=== PATIENT | male | born 1955 | race Caucasian/White ===

== ENCOUNTER 2016-03-14 11:15 | Observation (INO) | payer OTHER ==
[~2016-03-14 11:15] MED LIST: ceFAZolin 2 GM/DEXTROSE 100 ML IV ONE
[2016-03-14] MEDS ORDERED: CEFAZOLIN 2 GM/DEXTROSE/100 ML BAG IV ONE (11:54)
[2016-03-14] MEDS ORDERED: LR 1,000 ML IV ONE (12:26)
[2016-03-14] MEDS ORDERED: LIDOCAINE 1% 5 ML SDV ID PRN (12:26)
[2016-03-14] MEDS ORDERED: LABETALOL HCL 5 MG/ML 20 ML MDV IVP PRN (14:28)
[2016-03-14] MEDS ORDERED: oxyCODONE IR 5 MG TAB PO PRN (14:29)
[2016-03-14] MEDS ORDERED: ACETAMINOPHEN 500 MG TAB PO PRN (14:29)
[2016-03-14] MEDS ORDERED: ONDANSETRON 4 MG/2 ML VIAL IVP PRN (14:29)
[2016-03-14] MEDS ORDERED: LABETALOL HCL 5 MG/ML 20 ML MDV ONE (15:15)
[2016-03-14 17:29] LABS: ANION GAP 12 mEq/L (8-16); CARBON DIOXIDE 27 mEq/l (22-31); CHLORIDE 102 mEq/L (97-110); CREATININE 1.1 mg/dL (0.7-1.3); GLOMERULAR FILTRATION RATE > 60; GLUCOSE 124 mg/dL (70-100); SODIUM 141 mEq/L (134-144)
--- NOTE | 2016-03-14 18:33 | PDGENHP ---
History and Physical History and Physical: CONSULT AND HISTORY AND PHYSICAL ADMISSION NOTE CC: I am asked by Dr. Castro and Sp to see this patient because of severe hypertension in the preop area HISTORY: Mr. Michel comes in today for elective lumbar spine surgery with known lumbar disc disease with nerve impingement and significant refractory symptoms. In the preop area the patient has had blood pressures in the 180 systolic and mid 120s diastolic. I am asked to evaluate him for diagnosis and management of his blood pressure issues. Because of the projected prone positioning of the patient and concerned about altered auto regulation factors leading to high risk of complications, his surgery case has been canceled at this time and will be rescheduled. At this time the patient feels well other than his spine related symptoms. He has some sinus congestion which gives him a little bit of discomfort but this is a chronic symptom that he treats at home on a regular basis. He has no new headache type syndrome, no vision or neurologic symptoms, no chest pain, shortness of breath, palpitations, leg pain or swelling, abdominal pain or nausea. He has had none of these symptoms at home recently. He has no history of heart disease, and is not treated for hypertension. He says that 1 point he had some mildly elevated blood pressures on being evaluated his primary care doctor's office, however when he was given home blood pressure monitor for 24 hours as well as intermittent monitoring at home his blood pressures have always been good. His last blood pressure check was a week ago at Dr. Castro office and was normal. He does not use illicit street drugs and does not drink significant alcohol and does not smoke. There is not a significant family history of high blood pressure. As mentioned above the patient does have chronic sinus congestion. He has been treating this with decongestants. Last night around 10 o'clock at night he took 1-1/2 240 mg Sudafed tablets and use some Oxy metolazone spray as well. He says he does not use these medicines every day but uses them quite frequently to treat his sinus symptoms, particularly at night. He had his medicines with him and I looked at the packaging for the tablets which are 24 hour cold remedy with multiple medicines but indeed they do have 240 mg of pseudoephedrine. ROS: Other than the above 10 system review of systems is negative PAST MEDICAL HISTORY: lumbar spine disease with ongoing symptoms consistent with nerve impingement Chronic sinusitis He has otherwise been quite healthy FAMILY MEDICAL HISTORY: Family members overall fairly healthy SOCIAL HISTORY: no tobacco or alcohol, , his with him here at the bedside He does wish to be full cor MEDICATIONS: as mentioned above he takes Oxy metolazone spray and pseudoephedrine decongestants for chronic sinusitis but no other medications at home PHYSICAL EXAMINATION: Vital Signs: During my examination is blood pressure is 185/124, pulse is regular at 72, respirations normal and he is afebrile 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 Last week he had CBC and metabolic panel which were both unremarkable ASSESSMENT: DIAGNOSES: # SEVERE HYPERTENSION, WITHOUT EVIDENCE OF END-ORGAN DAMAGE AT THIS TIME; HYPERTENSIVE URGENCY # USE OF SIGNIFICANT DOSES OF DECONGESTANTS BEYOND THE RECOMMENDED IS MOST LIKELY THE CAUSE OF HIS HYPERTENSION AND THERE MAY BE A WHITE COAT EFFECT WELL PLANS: -I reviewed the patient's case in detail with Dr. Nir Snowden of anesthesia -At this time I agree with the plans to cancel and reschedule his surgery -will discontinue all of his decongestants at this time -I have given him 1 dose of labetalol and will follow his blood pressures closely; I expect that as the decongestants wear off from last night his blood pressure come under good control spontaneously beyond that. -observe on equipment monitor phototypesetting overnight -he will probably need referral to Ear Nose and Throat or protein specialist for management of his chronic sinus condition
[2016-03-14 20:25] VITALS: O2SAT 91
[2016-03-15 08:07] VITALS: BP 169/97; PULSE 72; RESP 20; TEMP 97.3
[2016-03-15] MEDS ORDERED: FLUTICASONE NASAL 120 SPRAYS/16 GM MDI EACHNARE SCH (09:00)
[2016-03-15] MEDS ORDERED: IPRATROPIUM 0.06% NASAL SPRAY EACHNARE SCH (09:00)
--- NOTE | 2016-03-15 09:46 | PDDCSUM ---
Discharge Summary Discharge Summary: DISCHARGE SUMMARY NOTE DISCHARGE DIAGNOSES: # HYPERTENSIVE URGENCY # CHRONIC SINUS AND NASAL HEADACHES AND CONGESTION CAUSED BY CHRONIC USE OF INHALED AND ORAL DECONGESTANTS # LUMBAR SPINE DISC DISEASE WITH NERVE IMPINGEMENT AND SCIATICA, PLANNED SURGERY WAS CANCELED DUE TO THE HYPERTENSIVE URGENCY AND IS RESCHEDULED FOR FUTURE DATE CONSULTANTS: Dr. Weaver of [facility] COURSE SUMMARY: This patient came into the hospital for elective surgery on his lumbar spine. However his blood pressure was at 185/124 in the preop area. This appears to have been due to use of very high doses of decongestants, significantly higher than the recommended dose is on the packaging. The patient has been using these decongestants for 40 years on a daily basis. It sounds like it started with a cold and he never stopped using them. He has ongoing chronic daily sinus headache congestion and pain in the sinus and nasal area. These appear briefly relieved by using these decongestants. The patient's decongestants were stopped. He was started on labetalol as needed and received just 1 dose for very high blood pressure here. At this point his blood pressures are still elevated but in the 160/95 range occasionally a bit higher than that. It is unclear whether all of his decongestants have worn off and the patient will follow his blood pressure for the next couple of days and if they do not come into normal range start on some blood pressure lowering medicine the way of lisinopril. He is to follow up with his primary care physician within 3-5 days. It is recommended that he have referral to Ear Nose Throat physician to consider help with his sinus difficulties. It was strongly recommended to the patient that he stop using all decongestants and avoid them entirely. The mechanism of the decongestants causing his ongoing sinus troubles was described to him in detail as well as the significant elevations in blood pressure could be caused by these medicines. At this time just a see if that will help at all and prescribing Atrovent and Flonase nasal sprays for the patient, but I have described to him that he will probably have a prolonged period of rebound congestion in the sinuses that he will have to contend with while waiting for the affects of the decongestants to wear off. MEDICATION CHANGES: The patient is to stop taking all decongestants Atrovent and Flonase nasal sprays or prescribed FOLLOW-UP PLAN: - With primary care physician in 3-5 days -surgery is rescheduled with Dr. Castro and he will keep that appointment Greater than 35 minutes bedside and care coordination time today
== END 2016-03-15 14:20 | disposition home or self-care (01) ==
LOC: INTOOBSV 11:15 → F3E 11:15 → F1N 15:59
PROVIDERS: ADMIT Orthopaedic Surgery Orthopaedic Surgery of the Spine; ATTEND Internal Medicine
DX: M51.26 Other intervertebral disc displacement, lumbar region (principal); I16.0 Hypertensive urgency; Z53.09 Procedure and treatment not carried out because of other contraindication
CPT/HCPCS: G0378; J3490; J0690

== ENCOUNTER 2016-03-21 12:05 | Inpatient (IN) | payer OTHER ==
[2016-03-21] MEDS ORDERED: LR 1,000 ML IV ONE ×2 (12:37→12:39)
[2016-03-21] MEDS ORDERED: LIDOCAINE 1% 5 ML SDV ID PRN (12:37)
[2016-03-21] MEDS ORDERED: THROMBIN (RECOMBINANT) 20,000 UNIT VIAL TP ONE ×2 (12:38→14:01)
[2016-03-21] MEDS ORDERED: methylPREDNISolone SOD SUCC 125 MG/2 ML VIAL ONE (12:39)
[2016-03-21] MEDS ORDERED: BACITRACIN 50,000 UNITS/10 ML SYR IRR ONE (12:39)
[2016-03-21] MEDS ORDERED: BUPIVACAINE 0.25% 30 ML SDV ONE (12:39)
[2016-03-21] MEDS ORDERED: BUPIVACAINE/EPI 0.25% 30 ML SDV ONE (12:39)
[2016-03-21] MEDS ORDERED: CEFAZOLIN 2 GM/DEXTROSE/100 ML BAG IV ONE (13:20)
[2016-03-21] MEDS ORDERED: REMIFENTANIL HCL 1 MG VIAL ONE (13:41)
[2016-03-21] MEDS ORDERED: PROPOFOL 200 MG/20 ML VIAL ONE (13:41)
[2016-03-21] MEDS ORDERED: PROPOFOL/EMULSION 500 MG/50 ML BOTTLE IV ONE ×2 (13:41→16:25)
[2016-03-21] MEDS ORDERED: fentaNYL 250 MCG/5 ML INJ ONE (13:41)
[2016-03-21] MEDS ORDERED: LIDOCAINE 2% 5 ML SDV ONE (13:49)
[2016-03-21] MEDS ORDERED: ROCURONIUM 50 MG/5 ML VIAL ONE ×2 (13:49→14:47)
[2016-03-21] MEDS ORDERED: PHENYLEPHRINE 10 MG/ML SDV ONE (13:53)
[2016-03-21] MEDS ORDERED: MIDAZOLAM 2 MG/2 ML VIAL ONE (13:55)
[2016-03-21] MEDS ORDERED: diphenhydrAMINE 25 MG CAP PO PRN (14:17)
[2016-03-21] MEDS ORDERED: LACTULOSE 20 GM/30 ML UDCUP PO PRN (14:17)
[2016-03-21] MEDS ORDERED: ACETAMINOPHEN 325 MG TAB PO PRN (14:17)
[2016-03-21] MEDS ORDERED: DIAZEPAM 10 MG/2 ML SYR IVP PRN (14:17)
[2016-03-21] MEDS ORDERED: ONDANSETRON DISINTEGRATING 4 MG TAB PO PRN (14:17)
[2016-03-21] MEDS ORDERED: MAGNESIUM HYDROXIDE 30 ML UDCUP PO PRN (14:17)
[2016-03-21] MEDS ORDERED: ONDANSETRON 4 MG/2 ML VIAL IVP PRN (14:17)
[2016-03-21] MEDS ORDERED: HYDROmorphONE/DILAUDID 1 MG/ML SYR IVP PRN (14:17)
[2016-03-21] MEDS ORDERED: BISACODYL 10 MG SUPP PR PRN (14:17)
[2016-03-21] MEDS ORDERED: DEXAMETHASONE 4 MG/ML VIAL ONE (14:48)
[2016-03-21] MEDS ORDERED: ceFAZolin 1 GM VIAL ONE (15:14)
[2016-03-21] MEDS ORDERED: ONDANSETRON 4 MG/2 ML VIAL ONE (15:15)
[2016-03-21] MEDS ORDERED: epHEDrine SULFATE 10 MG/ML SYR ONE (15:42)
[2016-03-21] MEDS ORDERED: VASOPRESSIN 20 UNIT/ML VIAL ONE (15:42)
--- NOTE | 2016-03-21 16:44 | POSTOPPROG ---
Post Op Note Date of Operation: 03/21/16 Surgeon: Gosia Csatro Spectrographic Analyst: Nicola Roblero SA Anesthesiologist: MD Fauzia Anesthesia: GET(General Endotracheal) Pre-op Diagnosis: L3-5 stenosis, R L3-4 lateral HNP, Facet OA Post-op Diagnosis: same Indication: BLE pain, instability Procedure: L3-5 lami, R L3-4 microdisc, L3-5 post fusion, instr, ISPD Findings: sev lat recess stenosis L3-5, R L3-4 HNP, L L4-5 facet cyst, hypermobility Inf/Abcess present in the surg proc area at time of surgery?: No Depth: Deep Incisional (Fascial) EBL: 50 cc Complications: none. No changes in neuro monitoring. Drains: Brad Gonzalez
[2016-03-21] MEDS ORDERED: fentaNYL 100 MCG/2 ML INJ ONE ×2 (17:02→17:50)
--- NOTE | 2016-03-21 17:04 | DX ---
Fluoroscopy Provided for Lumbar Spine Surgery, 1434 Hours Indication: Lumbar pain. Fluoroscopy Time: 11.2 seconds. Dose: 5.66 mGy. Comparison: Lumbar spine radiographs dated June 15, 2006. Technique: Three intraoperative spot films. Findings: The initial crosstable lateral view reveals a radiopaque localizer posterior to the L3-L4 i nterspinous space. Subsequent images reveal placement of two interspinous fixator devices at L3-L4 an d L4-L5. Impression: Fluoroscopy provided for intraoperative localization.
[2016-03-21] MEDS: SENNOSIDES/DOCUSATE SODIUM TAB PO SCH (20:21)
[2016-03-21] MEDS: HYDROCODONE/APAP 10/325 TAB PO PRN ×2 (20:21→23:18)
[2016-03-21] MEDS: D5W 1/2 NS W/ 20 KCl/L 1,000 ML IV SCH (20:21)
[2016-03-21] MEDS: DIAZEPAM 5 MG TAB PO PRN (23:18)
[2016-03-22] MEDS: HYDROCODONE/APAP 10/325 TAB PO PRN ×4 (05:13→16:05)
--- NOTE | 2016-03-22 05:52 | GOP ---
[f rep st] OPERATIVE REPORT DATE OF OPERATION: 03/21/2016 SURGEON: Gosia Pinedo MD CELLAR PACKER: Sánchez Roblero SA. ANESTHESIA: Sánchez Cage MD, general endotracheal intubation. PREOPERATIVE DIAGNOSIS: 1. Spinal stenosis, moderate, L3-4 and L4-5. 2. Right L3-4 disk herniation. 3. L3-4 and L4-5 mild instability with facet arthropathy. POSTOPERATIVE DIAGNOSIS: 1. Spinal stenosis, moderate, L3-4 and L4-5. 2. Right L3-4 disk herniation. 3. L3-4 and L4-5 mild instability with facet arthropathy. PROCEDURE PERFORMED: L3-4 and L4-5 partial laminectomies, lateral recess decompressions bilaterally, right L3-4 microdiskectomy, and L3-L5 posterior instrumentation with Southern Spine StabiLink inters pinous process devices, and posterolateral arthrodesis with bone morphogenic protein and crushed canc ellous bone graft. FINDINGS: Left L4-5 large synovial facet joint cyst, right L3-4 large disk herniation, and lateral r ecess stenosis moderate to severe bilaterally, at L3-4 and L4-5. ESTIMATED BLOOD LOSS: 50 cc. INDICATIONS: The patient is a pleasant 60-year-old gentleman, well known to my practice. He has had a gradual worsening of low back pain and bilateral lower extremity pain, left greater than right. H e has tried a number of nonoperative treatments, and despite these he has continued to worsen. Based on the MRI, surgery was recommended. No guarantees were given in regard to surgical outcome. Suzanne tiatariq risks, benefits, possible complications were thoroughly discussed with the patient including but not limited to, dural tear with CSF leak, meningitis, nerve root injury, partial or complete paralys is, infection, breakage or pullout of internal fixation, junctional breakdown, need for further surge ry, DVT, PE, pneumonia, stroke, heart attack, hemorrhage, blindness, and . DESCRIPTION OF PROCEDURE: After obtaining both written and verbal consent from the patient, he was b rought to the operating room, where he underwent general endotracheal intubation. The patient receiv ed IV antibiotics. Hartley catheter was placed. Intraoperative neural monitoring was set up. Patient was rolled to the prone position on the Singleton table. All 4 extremities were padded well. The fac e and eyes were padded per the anesthesiologist. A lateral fluoroscopic x-ray of the lumbar spine wa s obtained using an 18-gauge needle. This was removed and the lumbar spine was then prepped and drap ed in the normal sterile fashion. A time-out was performed with the entire operating room team, conf irming patient's name, date of , planned surgical procedure and levels, antibiotics given, and a llergies to medications. A 10 blade knife was used to create a longitudinal incision after a sterile prep and drape of the lum bar spine from L3-L5. The incision was brought down through skin subcutaneous tissues into the overl chriss dorsal fascia. Paraspinal muscles were stripped in a subperiosteal fashion. Self-retaining ret ractors were placed. An intraoperative x-ray was obtained for localization. Then, the FlashSoft jeffery f-retaining retractor was placed at L3-4 and L4-5, for better visualization. Under the operating jr roscope, a rongeur was used to remove the supraspinous ligament and interspinous ligaments at L3-4 an d at L4-5. There was a left-sided L4-5 large synovial facet joint cyst, that emanated from the facet joint, and was removed with a rongeur. There was hypermobility due to facet arthropathy and splayin g of the facet joints, at both L3-4 and L4-5 levels. Under the operating microscope, a Esmer was u sed to palpate in the epidural space, and the ligamentum flavum at L3-4 was removed with a 3 mm Cathy son. It was markedly hypertrophied, but mainly in the lateral recesses bilaterally. Undercutting wa s performed. Care was taken to protect the dura and the spinal cord at all times and the exiting ner ve roots. Then, at this time, the right-sided L3-4 level was addressed, given there was a disk herni ation there. A Love nerve root retractor was used to gently retract the midline thecal sac and the d isk space was identified. There was an annular tear slightly off to the right of central, and this s howed a moderate size disk herniation coming from it, and this was removed via piecemeal using a pitu itary rongeur. No other free fragments were identified. A [place] was then used to palpate ventral and into the neuro foramen, to ensure that there was no other compressive pathology at this level. T he lateral recesses were fully decompressed, and the L3-4 level on the left underwent a partial facet ectomy in order to gain access to the disk herniation. Then, the L4-5 level was addressed. There wa s as mentioned, a large facet joint cyst on the left at L4-5, which was removed with a rongeur. This left L4-5 facet joint was completely splayed open, suggesting significant instability. The ligament um flavum was hypertrophied causing stenosis, and this was removed with a 2 and 3 mm Kerrison. Again the stenosis that was identified was mainly lateral recess and foraminal. Therefore, 2 and 3 mm Ker risons were used to decompress the lateral recesses bilaterally, and care was taken to protect the du ra and exiting nerve roots at all times. Then, at this time, the decompression had been completed, a nd using the Wattblock Spine System called StabiLClean Plates, the caliper was utilized to measure the interspi nous space at L3-4. This measured 12 mm. At L4-5 it measured 10 mm. Therefore, the 12 mm dual lami na clamp was assembled using the tray device and the locking device, and after placing Gelfoam over t he dura to protect it at L3-4, this 12 mm dual lamina clamp was placed as deeply as possible to get e xcellent purchase within the lamina itself, at L3-4. It was tightened down per the fly raiser lockstitch's re commendation, and the locking screw was tightened and torqued. The carbon paper coating machine setter was then removed. A 2nd dual lamina clamp 10 mm in height, was then prepared in a similar fashion. This was placed at the L 4-5 level. Also again with excellent purchase. The locking screw was tightened down using a screwdr iver and was torqued per the fly raiser lockstitch's recommendation. Decortication of the facet joints at L3-4 and L4-5 was performed with a 5 mm round bur. Then, a size large bone morphogenic protein and crushed cancellous bone graft mixed with demineralized bone matri x was packed in a posterolateral position, to augment arthrodesis L3-4 and L4-5. A 10 flat DEBI drain was placed deep to the fascial layer and sewn in with a 2-0 nylon suture. Irrigation was performed a nd hemostasis was obtained to the best of our ability. The wound was then closed using #1 Vicryl in the deep fascial layer followed by an 0 Vicryl, and skin philip. 20 mL of 0.25% Marcaine without ep inephrine was infiltrated into the subcutaneous tissues for postoperative pain control. Sterile dres sing was applied. Lumbar warm and form corset was placed. An AP and a lateral fluoroscopic x-ray th en showed good position of the internal fixation at L3-4 and L4-5. The patient was then rolled to th e supine position. He was extubated in the operating room and brought to the recovery room in satisf actory condition. COMPLICATIONS: None. POSTOPERATIVE PLAN: Close neurologic observation, close airway observation, PT, OT, and pain control . /[id number]/MODL
[2016-03-22] MEDS: POLYETHYLENE GLYCOL 3350 17 GM PKT PO PRN (07:56)
[2016-03-22] MEDS: SENNOSIDES/DOCUSATE SODIUM TAB PO SCH ×2 (07:56→20:33)
[2016-03-22] MEDS: DIAZEPAM 5 MG TAB PO PRN ×3 (10:49→22:22)
--- NOTE | 2016-03-22 16:36 | SOAPPROG ---
SOAP Progress Note Assessment/Plan: Assessment: post op day 1, s/p L3-5 lami, R L3-4 microdisc and L3-5 ISPD. Pain control is number one issue. Plan: Will increase pain med dosage. Cont PT and OT. Encourage pt to use restroom rather than urinal. 03/22/16 16:33 Subjective: Pt complains of very significant incisional pain. "Legs feel great, though" Objective: Vital Signs Temp Pulse Resp BP Pulse Ox 37 C 80 18 135/82 H 92 03/22/16 15:56 03/22/16 15:56 03/22/16 15:56 03/22/16 15:56 03/22/16 15:56 03/21/16 03/22/16 03/23/16 05:59 05:59 05:59 Intake Total 1950 2000 Output Total 1590 405 Balance 360 1595 BLE motor 5/5. Kaleigh's negative x 2. Drain functioning properly. ICD10 Worksheet Patient Problems: Problems Problem Status Diagnosed Lumbar stenosis with neurogenic claudication Acute - ICD10 Problem Qualifiers (1) Lumbar stenosis with neurogenic claudication
--- NOTE | 2016-03-22 17:20 | PDGENHP ---
History and Physical - Chief Complaint Acute back - History of Present Illness 60-year-old male presenting with acute back pain located in his lower back with associated bilateral radiculopathy and onset of symptoms approximately 3-4 months ago. Patient reports that his symptoms have been intermittent and exacerbated by ambulation and activity. This is rendered the patient mostly physically inactive over this interval. He had been originally scheduled for a lumbar spine surgery by Dr. Castro but that surgery was canceled last week in the setting of systolic blood pressures in the 180 range. He was seen in consultation by Dr. Weaver at that time and it was concluded that the patient's headaches and use of Sudafed/Oxy metolazone most likely contributing to his high blood pressure. Antihypertensive medication was considered at that time, but the patient was not prescribed any given that the decision was made to discontinue his home headache medications and observe his blood pressure prior to initiating antihypertensive medications. The patient underwent lumbar surgery on 03/21/2016 and he has subsequently experienced severe pain located in his lower back exacerbated by movement, alleviated by rest. He has been urinating regularly and he has not moved his bowels. His blood pressure has gotten as high as 165 systolic in the setting of pain. His blood pressure has gotten as low as 110 in the setting of pain medications. History Information - Allergies/Home Medication List Allergies/Adverse Reactions: broccoli Allergy (Verified 03/20/16 17:14) tramadol Allergy (Verified 03/20/16 17:14) HEADACHE Home Medications: Flonase Nasal Balsam 1 - 2 sprays EACHNARE DAILY 03/20/16 [Last Taken 03/21/16 08 :00] I have personally reviewed and updated: family history, medical history, social history, surgical history - Past Medical History Additional medical history: High blood pressure in the setting of Sudafed and oxygen metolazone. Chronic sinusitis. Chronic lumbar spine pain with nerve root impingement - Surgical History Additional surgical history: 03/21/2016 L3-L5 laminectomy, right-sided L3-L4 micro diskectomy, L3-L5 I SP D - Family History Additional family history: No remarkable family history - Social History Smoking Status: Former smoker Alcohol Use: None Drug Use: None Additional social history: Reports that he has been regularly in active prior to this presentation Review of Systems ROS: 10pt was reviewed & negative except for what was stated in HPI & below Muscolosketal: Reports: back pain Physical Exam Temp Pulse Resp BP Pulse Ox 37 C 80 18 135/82 H 92 03/22/16 15:56 03/22/16 15:56 03/22/16 15:56 03/22/16 15:56 03/22/16 15:56 O2 (L/minute) 1 Constitutional: no apparent distress, appears nourished, not in pain Eyes: PERRL, anicteric sclera, EOMI Ears, Nose, Mouth, Throat: moist mucous membranes, hearing normal, ears appear normal, no oral mucosal ulcers Cardiovascular: regular rate and rhythym, no murmur, rub, or gallop, No edema Respiratory: no respiratory distress, no rales or rhonchi, inspiratory crackles (Bilateral bases), No expiratory wheeze Gastrointestinal: normoactive bowel sounds, soft, non-tender abdomen, no palpable masses Musculoskeletal: full muscle strength (Bilateral lower extremity), No asymmetric calves Neurologic: AAOx3, sensation intact bilaterally, No weakness (Motor 5/5 bilateral lower extremity) Psychiatric: interacting appropriately, not anxious, not encephalopathic, thought process linear Assessment & Plan Assessment: 60-year-old male presents with lumbar disease requiring neuro surgery, complicated by high blood pressure Plan: 1. High blood pressure. Is unclear whether the patient has a true diagnosis of hypertension. -He reports that in the outpatient setting, when he has been in good physical condition, his systolic blood pressure has been around 140. He has been checking his levels at home and not in a physician's office. I suspect the patient may have early hypertension and he will most likely progress to a definitive hypertension in the future. -That being said, the patient's recent presentation for hypertensive urgency as outlined in Dr. Weaver's 03/15/2016 discharge summary suggest that the patient's systolic blood pressure of 185 was secondary to a combination of pain as well as concomitant use of Sudafed and oxygen metolazone. Given that the patient's systolic blood pressure has improved since that time with the only intervention being discontinuation of those medications, I would agree. -during this hospitalization his systolic blood pressures range from 110-165, most likely spiking in the setting of pain, most likely at its lowest level in the setting of pain medication use -at the present time, I would not recommend initiating an antihypertensive medication as the risk of hypotension from introduction of said medication as well as concomitant use of pain medications will place the patient at higher risk then allowing his systolic blood pressure to fluctuate as long as it is consistently less than 160 -we will continue to monitor the patient's blood pressure infuse consistently running between 140 and 180, then it would be reasonable to initiate lisinopril 2.5 mg daily beginning tomorrow -the patient's are both very satisfied with this plan 2. Constipation. Patient currently on bowel regimen continue 3. Suspected atelectasis. Patient with an SpO2 of 87% on room air in the setting of immobility and postoperative state, counseled the patient regarding aggressive incentive spirometer [facility] Medicine service will continue to consult in this patient's care.
[2016-03-22] MEDS: D5W 1/2 NS W/ 20 KCl/L 1,000 ML IV SCH (20:33)
[2016-03-22] MEDS: morphINE SR 15 MG TAB PO SCH (22:23)
[2016-03-23] MEDS: HYDROCODONE/APAP 10/325 TAB PO PRN ×3 (04:45→18:43)
[2016-03-23] MEDS: morphINE SR 15 MG TAB PO SCH ×2 (08:07→21:08)
[2016-03-23] MEDS: SENNOSIDES/DOCUSATE SODIUM TAB PO SCH ×2 (08:07→21:08)
--- NOTE | 2016-03-23 11:09 | HOSPPROG ---
Hospitalist Progress Note Assessment/Plan: 60-year-old male presents with lumbar disease requiring neuro surgery, complicated by high blood pressure. This is my first encounter, chart reviewed. Plan: 1. High blood pressure. his systolic blood pressure has been around 140-150 wishes to hold off on antihypertensive medication at this time He has been checking his levels at home possible early hypertension FU PCP continue to monitor the patient's blood pressure initiate lisinopril 2.5 mg daily if consistently elevated Likely related to pain currently 2. Constipation. Patient currently on bowel regimen continue 3. Suspected atelectasis. Patient with an SpO2 of 87% on room air in the setting of immobility and postoperative state cont supportive care and OOB 4. Pain cont meds c/o spasm 5. Dispo when ok with surgery Hospital Medicine service will continue to consult in this patient's care. Subjective: At edge of bed. Working with therapy. C/O spasm currently. Objective: Vital Signs Temp Pulse Resp BP Pulse Ox 36.6 C 78 14 146/93 H 90 L 03/23/16 08:00 03/23/16 08:00 03/23/16 08:00 03/23/16 08:00 03/23/16 08:00 03/22/16 03/23/16 03/24/16 05:59 05:59 05:59 Intake Total 1950 3450 Output Total 1590 1410 400 Balance 360 2040 -400 - Physical Exam Constitutional: appears nourished, uncomfortable, No obese Eyes: PERRL, anicteric sclera, EOMI Ears, Nose, Mouth, Throat: moist mucous membranes, hearing normal, ears appear normal Cardiovascular: regular rate and rhythym, No JVD, No edema Respiratory: no respiratory distress, no rales or rhonchi, reduced air movement Gastrointestinal: No tenderness, No ascites, No guarding Skin: warm, normal color, No erythema Musculoskeletal: pain with ROM, muscular tenderness, generalized weakness Neurologic: AAOx3 Psychiatric: not anxious, not encephalopathic, thought process linear ICD10 Worksheet Patient Problems: Problems Problem Status Diagnosed Lumbar stenosis with neurogenic claudication Acute
[2016-03-23] MEDS: DIAZEPAM 5 MG TAB PO PRN (16:05)
--- NOTE | 2016-03-23 18:09 | SOAPPROG ---
SOAP Progress Note Assessment/Plan: Assessment: post op day 1, s/p L3-5 lami, R L3-4 microdisc and L3-5 ISPD. Pain control is number one issue. Plan: Will increase pain med dosage. Cont PT and OT. Encourage pt to use restroom rather than urinal. 03/22/16 16:33 03/23/16 18:07 post op day 2. Pt had syncopal episode last night. Better now. Still moving very slowly/ slow to progress. Pt agreeable to transfer to SNF tomorrow or Sat. Subjective: Pt complains of left low back muscle spasms. Objective: Vital Signs Temp Pulse Resp BP Pulse Ox 37 C 101 H 16 142/103 H 90 L 03/23/16 16:00 03/23/16 16:00 03/23/16 16:00 03/23/16 16:00 03/23/16 16:00 03/22/16 03/23/16 03/24/16 05:59 05:59 05:59 Intake Total 1950 3450 1100 Output Total 1590 1410 1540 Balance 360 2040 -440 Motor 5/5. NVI. Kaleigh's negative x 2. Drain functioning properly. ICD10 Worksheet Patient Problems: Problems Problem Status Diagnosed Lumbar stenosis with neurogenic claudication Acute - ICD10 Problem Qualifiers (1) Lumbar stenosis with neurogenic claudication
[2016-03-24] MEDS: HYDROCODONE/APAP 10/325 TAB PO PRN ×2 (05:40→12:38)
[2016-03-24] MEDS: DIAZEPAM 5 MG TAB PO PRN ×2 (05:40→12:39)
--- NOTE | 2016-03-24 09:28 | SOAPPROG ---
SOAP Progress Note Assessment/Plan: Assessment: post op day 1, s/p L3-5 lami, R L3-4 microdisc and L3-5 ISPD. Pain control is number one issue. Plan: Will increase pain med dosage. Cont PT and OT. Encourage pt to use restroom rather than urinal. 03/22/16 16:33 03/23/16 18:07 post op day 2. Pt had syncopal episode last night. Better now. Still moving very slowly/ slow to progress. Pt agreeable to transfer to SNF tomorrow or 03/24/16 09:25 post op day 3. Pt slow to progress but seeming better this morning. Plan: OT to help pt shower today. Cont PT. Wean off O2. Pt will need SNF transfer tomorrow. Also, pt hasn't had a BM yet. Will need rectal suppository. 03/24/16 09:26 Subjective: Pt states he doesn't hurt while not moving. No leg pain compared with preop. Objective: Vital Signs Temp Pulse Resp BP Pulse Ox 37.2 C 83 16 134/86 H 91 L 03/24/16 07:30 03/24/16 07:30 03/24/16 07:30 03/24/16 07:30 03/24/16 07:30 03/23/16 03/24/16 03/25/16 05:59 05:59 05:59 Intake Total 3450 1250 375 Output Total 1410 2330 Balance 2040 -1080 375 BLE motor 5/5. Drain was removed by RN. ICD10 Worksheet Patient Problems: Problems Problem Status Diagnosed Lumbar stenosis with neurogenic claudication Acute - ICD10 Problem Qualifiers (1) Lumbar stenosis with neurogenic claudication
[2016-03-24] MEDS: SENNOSIDES/DOCUSATE SODIUM TAB PO SCH ×2 (09:39→20:35)
[2016-03-24] MEDS: morphINE SR 15 MG TAB PO SCH ×2 (09:39→20:35)
[2016-03-24] MEDS: POLYETHYLENE GLYCOL 3350 17 GM PKT PO PRN (12:45)
--- NOTE | 2016-03-24 13:20 | HOSPPROG ---
Hospitalist Progress Note Assessment/Plan: 60-year-old male presents with lumbar disease requiring neuro surgery, complicated by high blood pressure. This is my first encounter, chart reviewed. Plan: 1. High blood pressure. his systolic blood pressure has been around 140-150 wishes to hold off on antihypertensive medication at this time He has been checking his levels at home possible early hypertension FU PCP continue to monitor the patient's blood pressure initiate lisinopril 2.5 mg daily if consistently elevated Likely related to pain currently 2. Constipation. Patient currently on bowel regimen continue 3. Suspected atelectasis. Patient with an SpO2 of 87% on room air in the setting of immobility and postoperative state cont supportive care and OOB 4. Pain cont meds c/o spasm 5. Dispo when ok with surgery Will likely need senior living facility Hospital Medicine service will continue to consult in this patient's care. Subjective: Feeling better today than yesterday. No specific issues currently. Resting comfortably. Objective: Vital Signs Temp Pulse Resp BP Pulse Ox 37.2 C 83 16 134/86 H 91 L 03/24/16 07:30 03/24/16 07:30 03/24/16 07:30 03/24/16 07:30 03/24/16 07:30 03/23/16 03/24/16 03/25/16 05:59 05:59 05:59 Intake Total 3450 1250 375 Output Total 1410 2330 Balance 2040 -1080 375 - Physical Exam Constitutional: no apparent distress, appears nourished Eyes: PERRL, anicteric sclera Ears, Nose, Mouth, Throat: moist mucous membranes, hearing normal Cardiovascular: No JVD, No tachycardia Respiratory: no respiratory distress, reduced air movement Gastrointestinal: No tenderness, No ascites Skin: warm, normal color Musculoskeletal: muscular tenderness, generalized weakness Neurologic: AAOx3 Psychiatric: not anxious, not encephalopathic ICD10 Worksheet Patient Problems: Problems Problem Status Diagnosed Lumbar stenosis with neurogenic claudication Acute
[2016-03-24 23:38] VITALS: RESP 16
[2016-03-25] MEDS: HYDROCODONE/APAP 10/325 TAB PO PRN ×2 (05:48→13:00)
[2016-03-25 07:22] VITALS: BP 136/83; PULSE 93; TEMP 99.5; O2SAT 90
--- NOTE | 2016-03-25 08:35 | HOSPPROG ---
Hospitalist Progress Note Assessment/Plan: 60-year-old male PMH episodic htn in past in setting of use of Sudafed/ metaxalone, chronic sinusitis, DDD, presents with acute back pain with bilateral radiculopathy starting 3-4 months ago in setting of lumbar disease requiring neuro surgery, complicated by high blood pressure. This is my first encounter, chart reviewed. #. High blood pressure. his systolic blood pressure has been around 140-150 wishes to hold off on antihypertensive medication at this time He has been checking his levels at home possible early hypertension FU PCP continue to monitor the patient's blood pressure initiate lisinopril 2.5 mg daily if consistently elevated Likely related to pain currently #. Constipation. Patient currently on bowel regimen continue #. Suspected atelectasis. Patient with an SpO2 of 87% on room air in the setting of immobility and postoperative state cont supportive care and OOB #. Pain cont meds c/o spasm 5. Dispo when ok with surgery [facility] likely [facility] Hospital Medicine service will continue to consult in this patient's care. Objective: Vital Signs Temp Pulse Resp BP Pulse Ox 99.5 F 93 16 136/83 H 90 L 03/25/16 07:22 03/25/16 07:22 03/25/16 07:22 03/25/16 07:22 03/25/16 07:22 03/24/16 03/25/16 03/26/16 05:59 05:59 05:59 Intake Total 1250 375 Output Total 2330 1250 Balance -1080 -875 ICD10 Worksheet Patient Problems: Problems Problem Status Diagnosed Lumbar stenosis with neurogenic claudication Acute
[2016-03-25] MEDS: SENNOSIDES/DOCUSATE SODIUM TAB PO SCH (09:29)
[2016-03-25] MEDS: morphINE SR 15 MG TAB PO SCH (09:29)
--- NOTE | 2016-03-25 12:49 | SOAPPROG ---
SOAP Progress Note Assessment/Plan: Assessment: post op day 1, s/p L3-5 lami, R L3-4 microdisc and L3-5 ISPD. Pain control is number one issue. Plan: Will increase pain med dosage. Cont PT and OT. Encourage pt to use restroom rather than urinal. 03/22/16 16:33 03/23/16 18:07 post op day 2. Pt had syncopal episode last night. Better now. Still moving very slowly/ slow to progress. Pt agreeable to transfer to SNF tomorrow or 03/24/16 09:25 post op day 3. Pt slow to progress but seeming better this morning. Plan: OT to help pt shower today. Cont PT. Wean off O2. Pt will need SNF transfer tomorrow. Also, pt hasn't had a BM yet. Will need rectal suppository. 03/24/16 09:26 03/25/16 12:47 post op day 4, s/p L3-5 lami, R L3-4 microdisc and L3-5 post fusion, Instrum. Pt ready for transfer to SNF in [place]. Subjective: Pt states he has some diarrhea. Pain slighltly improved. Objective: Vital Signs Temp Pulse Resp BP Pulse Ox 37.5 C 93 16 136/83 H 90 L 03/25/16 07:22 03/25/16 07:22 03/25/16 07:22 03/25/16 07:22 03/25/16 07:22 03/24/16 03/25/16 03/26/16 05:59 05:59 05:59 Intake Total 1250 375 Output Total 2330 1250 Balance -1080 -875 Lumbar wound is clean and dry. No signs of infection. BLE motor 5/5. SLR negative x 2 and Kaleigh's negative x 2. ICD10 Worksheet Patient Problems: Problems Problem Status Diagnosed Lumbar stenosis with neurogenic claudication Acute - ICD10 Problem Qualifiers (1) Lumbar stenosis with neurogenic claudication
--- NOTE | 2016-03-25 12:55 | PDIAF ---
- Diagnosis Diagnosis: s/p L3-5 lami, R L3-4 microdisc, post fusion/instrumentation Code Status: Full Code - Medication Management Discharge Medications: Medications to Continue on Transfer Flonase Nasal Brock 1 - 2 sprays EACHNARE DAILY 03/20/16 [Last Taken 03/21/16 08 :00] Acetaminophen [Tylenol 325mg (*)] 325 - 650 mg PO Q4HRS PRN #0 tab 03/25/16 [ Last Taken Unknown] Diazepam [Valium 5 MG (*)] 5 mg PO Q8 PRN #30 tab 03/25/16 [Last Taken Unknown] HYDROcodone/APAP 10/325 [[place] 10/325 (*)] 1 - 2 tab PO Q6HRS PRN #0 tab [Last Taken Unknown] Polyethylene Glycol 3350 [Miralax 17 gm (*)] 17 gm PO DAILY PRN #0 pkt 03/25/16 [Last Taken Unknown] Sennosides/Docusate Sodium [Senokot-S] 1 - 2 tab PO BID #0 tab 03/25/16 [Last Taken Unknown] morphINE SR [Ms Contin/Oramorph 15 mg (*)] 15 mg PO BID #0 tab 03/25/16 [Last Taken Unknown] Longterm Antibiotics: none Discharge Medications: Refer to the Discharge Home Medication list for PRN reason. PICC Care - Routine: N/A - Orders Services needed: Registered Nurse, Physical Therapy, Occupational Therapy Home Care Face to Face: Mar 25, 2016 Diet Recommendation: no restrictions on diet Diet Texture: Regular Texture Diet [place] Discontinue Date: Apr 01, 2016 Wound Care Instructions: Daily dry dressing change to lumbar wound. NO ointment. Sutures/[place] Site: Pt has a follow up appt w/surgeon. Activity/Weight Bearing Restrictions: Pt must wear back brace at all times except during showers. - Follow Up Care Current Providers and Referrals: ALIDA MONTE [Primary Care Provider] -
--- NOTE | 2016-03-25 13:24 | GDS ---
[f rep st] DISCHARGE SUMMARY HOSPITAL COURSE: Patient is a pleasant 60-year-old gentleman well known to my practice. He has had a gradual onset and worsening of low back pain and bilateral lower extremity pain. Patient had tried a number of nonoperative treatments. Ultimately, an MRI showed spinal stenosis and a right L3-4 dis k herniation with instability with end facet arthropathy, L3 to L5. He elected to undergo surgery. On 03/21/2016, under a general anesthetic, the patient underwent an L3-4, L4-5 partial laminectomy, l ateral recess decompression, right L3-4 microdiskectomy, and L3 to L5 posterior instrumentation with interspinous process device. A drain was placed. Postoperatively the patient was kept on IV antibio tics until the drain was removed without difficulty. Postoperatively the patient had significant pain problems and states that he was essentially pain ling e if he did not move, but any movement, especially engaging in physical therapy, caused significant p ain. He is currently taking MS Contin 15 mg 1 p.o. b.i.d., Percocet 1-2 every 6 hours p.r.n. for [place] n, and Valium 5 mg every 8 hours p.r.n. for muscle spasms. Patient was seen in PT and OT and was very slow to advance in ambulation and activities of daily ro ng. He tolerated a regular diet. Due to constipation, the patient had a number of stool softeners a nd a suppository and was able have a bowel movement and is actually having some increased frequency i n bowel movements currently. He is tolerating a regular diet with no nausea or vomiting. Neurologically, his lower extremity pain resolved completely. His lumbar wound was clean, dry, and i ntact and showed no signs of infection. INSTRUCTIONS FOR [facility]: The patient needs to wear his lumbar back brace at all ti mes except when taking a shower. He needs to wear it at night in bed as well. I require that he joel e a shower daily. The brace will need to be removed prior to the shower as well as his dressing arou nd the lumbar wound. He can get in the shower but cannot bend or twist, and the wound may get wet. After the shower he needs a daily dry dressing change and no ointment. Patient needs to avoid all bending, lifting, twisting. He needs to avoid all anti-inflammatories. Fam campbell has a followup appointment scheduled in my office in approximately 10 days. We will give of a yola nder call to the family prior to that. Do not remove any of the patient's philip as I will do that in the office on his followup appointment. Patient was given prescriptions in advance of his hospita l course to take when he gets discharged to home, and these are Percocet and Valium. Overall the patient is doing well with full relief of his leg pain but is very slow to progress in ph ysical therapy and occupational therapy and requires inpatient intermediate facility, and I suspec t this will be for 7-10 days. /[id number]/MODL
== END 2016-03-25 15:02 | DRG 460 ==
LOC: F3N 12:05 → OBSVTOIN 14:22 → F3N 18:26
PROVIDERS: ADMIT Orthopaedic Surgery Orthopaedic Surgery of the Spine; ATTEND Orthopaedic Surgery Orthopaedic Surgery of the Spine
PROC: 0SB20ZZ Excision of Lumbar Vertebral Disc, Open Approach (ICD-10-PCS; principal; 2016-03-21 13:45)
PROC: 0QB00ZZ Excision of Lumbar Vertebra, Open Approach (ICD-10-PCS; principal; 2016-03-21 13:45)
PROC: 0SG1071 Fusion of 2 or more Lumbar Vertebral Joints with Autologous Tissue Substitute, Posterior Approach, Posterior Column, Open Approach (ICD-10-PCS; principal; 2016-03-21 13:45)
PROC: 3E0U0GB Introduction of Recombinant Bone Morphogenetic Protein into Joints, Open Approach (ICD-10-PCS; principal; 2016-03-21 13:45)
PROC: 0SH00BZ Insertion of Interspinous Process Spinal Stabilization Device into Lumbar Vertebral Joint, Open Approach (ICD-10-PCS; principal; 2016-03-21 13:45)
PROC: 00NY0ZZ Release Lumbar Spinal Cord, Open Approach (ICD-10-PCS; principal; 2016-03-21 13:45)
DX: M51.26 Other intervertebral disc displacement, lumbar region (principal); M48.06 Spinal stenosis, lumbar region; J98.11 Atelectasis; K59.00 Constipation, unspecified; I10 Essential (primary) hypertension
CPT/HCPCS: 82947-QW; 97116-GP; 97161-GP; 97165-GO; 97530-GO; 97530-GP; 97535-GO; C1713; C1762; G8978-GP-CK; G8979-GP-CI; J0690; J1100; J2250; J2370; J2405; J2704; J3010